=== PATIENT | male | born 1975 ===

== ENCOUNTER 2017-03-17 12:12 | Emergency (ER) | payer OTHER ==
[2017-03-17 12:29] VITALS: RESP 18; TEMP 98.2; O2SAT 98
[2017-03-17 13:56] VITALS: BP 138/89; PULSE 78
--- NOTE | 2017-03-17 22:00 | C.PDOC ---
History Of Present Illness 41 year old male presents to the ED with complaints of a cyst to his left buttock for two years. Patient reports pain has been worsening for two weeks. He denies blood in stool, pain with defecation, or drainage. Chief Complaint (Nursing): Abnormal Skin Integrity History Per: Patient History/Exam Limitations: no limitations Onset/Duration Of Symptoms: Persistent (2 years), Worse Since (2 weeks ) Current Symptoms Are (Timing): Still Present Location Of Injury: Left: Buttock Quality Of Symptoms: Painful, Swollen. denies: Draining Recent travel outside of the [place]: No Past Medical History Reviewed: Historical Data, Nursing Documentation, Vital Signs Vital Signs: Last Vital Signs Temp 98.2 F 03/17/17 12:26 Pulse 78 03/17/17 13:54 Resp 18 03/17/17 13:54 BP 138/89 03/17/17 13:54 Pulse Ox 98 03/17/17 22:04 - Medical History PMH: HTN Family History: States: Unknown Family Hx - Social History Hx Alcohol Use: No Hx Substance Use: No - Immunization History Hx Tetanus Toxoid Vaccination: No Hx Influenza Vaccination: No Hx Pneumococcal Vaccination: No Review Of Systems Constitutional: Negative for: Fever Skin: Positive for: Other (abscess to left buttock ) Neurological: Negative for: Weakness, Numbness Physical Exam - Physical Exam Appears: Non-toxic, No Acute Distress Skin: Warm, Dry, Other (2 cm indurated abscess to left buttock at 3 o'clock position. No active drainage. Minimal tenderness) Extremity: Normal ROM, No Tenderness, Capillary Refill (good capillary refill, less than two seconds ), No Deformity, No Swelling Neurological/Psych: Oriented x3 ED Course And Treatment O2 Sat by Pulse Oximetry: 98 (RA) Progress Note: Patient was instructed to apply warm compress and to follow up with PMD. Disposition - Disposition Referrals: [facility] [Outside] [facility] [Outside] Disposition: HOME/ ROUTINE Disposition Time: 13:10 Condition: GOOD Additional Instructions: Thank you for letting us take care of you today. Your provider was Dr. Phoenix. You were treated for an abscess. The emergency medical care you received today was directed at your acute symptoms. If you were prescribed any medication, please fill it and take as directed. It may take several days for your symptoms to resolve. Return to the Emergency Department if your symptoms worsen, do not improve, or if you have any other problems. Please contact your doctor or call one of the physicians/clinics you have been referred to that are listed on the Patient Visit Information form that is included in your discharge packet. Bring any paperwork you were given at discharge with you along with any medications you are taking to your follow up visit. Our treatment cannot replace ongoing medical care by a primary care provider (PCP) outside of the emergency department. Thank you for allowing the [facility] team to be part of your care today. Apply warm packs to the area as much as possible. Follow up with the clinic in 3-5 days outpatient care and management. Instructions: Abscess (ED) - Clinical Impression Clinical Impression: Abscess - Scribe Statement The provider has reviewed the documentation as recorded by the Scribe Velma Ram All medical record entries made by the Rahelibmarti were at my direction and personally dictated by me. I have reviewed the chart and agree that the record accurately reflects my personal performance of the history, physical exam, medical decision making, and the department course for this patient. I have also personally directed, reviewed, and agree with the discharge instructions and disposition.
== END 2017-03-17 13:55 | disposition home or self-care (01) ==
LOC: C.ER 12:12
DX: L02.31 Cutaneous abscess of buttock (principal)